=== PATIENT | female | born 1995 | race Caucasian/White ===

== ENCOUNTER 2017-08-05 12:21 | Emergency (ER) | payer SELFPAY ==
[2017-08-05 12:25] VITALS: BP 131/81
--- NOTE | 2017-08-05 12:48 | ER Document Report ---
HPI - HPI Patient complains to provider of: 3 weeks pelvic pain Onset: Other - 3 weeks Onset/Duration: Persistent Pain Level: 4 Context: 22 yo female with intermittent bilateral pelbic pain, low back pain and pelvic pain worse with movement at work. No fever or chills. Dysuria at firts. Vaginal discharge with bad smnell few weeks ago. Sex 2 weeks ago, new partner, NO condom.. LMP July 11. No hx ovarian cyst or endometriosis. Works [employer]. No rash. Associated Symptoms: None Exacerbated by: Denies Relieved by: Denies - ROS ROS below otherwise negative: Yes Systems Reviewed and Negative: Yes All other systems reviewed and negative Past Medical History - General Information source: Patient - Social History Smoking Status: Never Smoker Frequency of alcohol use: None Drug Abuse: None Lives with: Family Family History: Reviewed & Not Pertinent - Medical History Medical History: Negative Past Surgical History: Reports: Hx Myringotomy Vertical Provider Document - CONSTITUTIONAL Agree With Documented VS: Yes Exam Limitations: No Limitations General Appearance: No Apparent Distress - INFECTION CONTROL TRAVEL OUTSIDE OF THE [place] IN LAST 30 DAYS: No - HEENT HEENT: Normocephalic - NECK Neck: Supple - GI/ABDOMEN Gastrointestinal: Abdomen Soft, Abdomen Non-Tender, No Organomegaly - BACK Back: Normal Inspection. negative: CVA Tenderness-Right, CVA Tenderness-Left - MUSCULOSKELETAL/EXTREMETIES Musculoskeletal/Extremeties: MAEW - NEURO Level of Consciousness: Awake, Alert - DERM Integumentary: Warm, Dry, No Rash Course - Re-evaluation Re-evalutation: 08/05/17 13:45 wet prep shows BV, UA is negative. pt will call me back for the STD cultures 08/06/17 10:43 chlamydia was positive. Pt did not call me last night as instructed. Attempted call this am, no ability to leave a message on this phone. - Vital Signs Vital signs: Temp Pulse Resp BP Pulse Ox 98.6 F 73 15 131/81 H 98 08/05/17 12:25 08/05/17 12:25 08/05/17 12:25 08/05/17 12:25 08/05/17 12:25 Discharge - Discharge Clinical Impression: Bacterial vaginosis, Pelvic pain Condition: Good Disposition: HOME, SELF-CARE Instructions: Azithromycin ([facility]), Metronidazole ([facility]), Pelvic Pain ([facility]), Rocephin ([facility]) Additional Instructions: call me in 3 hours for the STD results [phone] no douching no alcohol with the metronidazole to obgyn if persists Prescriptions: Metronidazole [Flagyl 500 mg Tablet] 500 mg PO BID #14 tablet Forms: Return to Work Referrals: ELIF ARGUELLES MD [ACTIVE STAFF] - Follow up as needed
[2017-08-05 13:09] LABS: BACTERIA (WET MOUNT) 4+ BACTERIA SEEN; EPITHELIALS (WET MOUNT) 4+ EPITHELIALS SEEN; T.VAGINALIS (WET MOUNT) NO TRICHOMONAS SEEN; WBCS (WET MOUNT) 1+ WBCS SEEN; YEAST (WET MOUNT) NO YEAST SEEN
[2017-08-05] MEDS ORDERED: CEFTRIAXONE INJ 250 MG VIAL IM ONE (13:23)
[2017-08-05] MEDS ORDERED: LIDOCAINE 1% INJ-PF (10 MG/ML) 30 ML SDV INJ ONE (13:23)
[2017-08-05] MEDS ORDERED: AZITHROMYCIN 250 MG TABLET PO ONE (13:23)
[2017-08-05] MEDS ORDERED: ONDANSETRON 4 MG TAB.RAPDIS PO ONE (13:23)
[2017-08-05 13:27] LABS: APPEARANCE,URINE CLOUDY; BILIRUBIN,URINE NEGATIVE (NEGATIVE); COLOR,URINE YELLOW; GLUCOSE, URINE NEGATIVE (NEGATIVE); KETONES,URINE NEGATIVE (NEGATIVE); LEUKOCYTE ESTERASE,URINE NEGATIVE (NEGATIVE); NITRITE,URINE NEGATIVE (NEGATIVE); PROTEIN,URINE NEGATIVE (NEGATIVE); URINE SPECIFIC GRAVITY 1.024; UROBILINOGEN,URINE NEGATIVE mg/dL (<2.0)
[2017-08-05 14:36] LABS: CHLAM PCR DETECTED (NOT DETECT); GON PCR NOT DETECTED (NOT DETECT)
== END 2017-08-05 13:49 | disposition home or self-care (01) ==
LOC: ER 12:21
DX: N76.0 Acute vaginitis (principal); B96.89 Other specified bacterial agents as the cause of diseases classified elsewhere; A56.8 Sexually transmitted chlamydial infection of other sites; R10.2 Pelvic and perineal pain; M54.5 Low back pain
CPT/HCPCS: 99284; 96372; 87086; 87210; 81025; 81001; 87491; 87591; S0119; J3490; J0696

== ENCOUNTER 2017-10-15 18:06 | Emergency (ER) | payer SELFPAY ==
[2017-10-15] MEDS ORDERED: DIPHENHYDRAMINE HCL 50 MG/ML VIAL IM ONE (18:45)
--- NOTE | 2017-10-15 18:45 | ER Document Report ---
ED General - General Chief Complaint: Weakness Stated Complaint: WEAKNESS/TREMORS Time Seen by Provider: 10/15/17 18:39 Notes: The patient is a 22-year-old female, past medical history headaches, presents after she had a headache earlier today with mild lower right facial droop. She has had this in the past and has quickly resolved. Mom also noticed that she was having some trouble speaking. Patient said her tongue feels like it is curling uncontrollably. Patient is also shaking her left arm. Her headache has completely resolved and she has no focal weakness, numbness, tingling, blurry vision or fevers. TRAVEL OUTSIDE OF THE [place] IN LAST 30 DAYS: No - Related Data Allergies/Adverse Reactions: No Known Allergies Allergy (Verified 10/15/17 18:08) Past Medical History - General Information source: Patient - Social History Smoking Status: Unknown if Ever Smoked Family History: Reviewed & Not Pertinent Renal/ Medical History: Denies: Hx Peritoneal Dialysis Past Surgical History: Reports: Hx Myringotomy Review of Systems - Review of Systems Notes: REVIEW OF SYSTEMS: CONSTITUTIONAL: -fevers, -chills EENT: -eye pain, -difficulty swallowing, -nasal congestion CARDIOVASCULAR: -chest pain, -syncope. RESPIRATORY: -cough, -SOB GASTROINTESTINAL: -abdominal pain, -nausea, -vomiting, -diarrhea GENITOURINARY: -dysuria, -hematuria MUSCULOSKELETAL: -back pain, -neck pain SKIN: -rash or skin lesions. HEMATOLOGIC: -easy bruising or bleeding. LYMPHATIC: -swollen, enlarged glands. NEUROLOGICAL: -altered mental status or loss of consciousness, +headache PSYCHIATRIC: -anxiety, -depression. ALL OTHER SYSTEMS REVIEWED AND NEGATIVE. Physical Exam - Vital signs Vitals: Temp Pulse Resp BP Pulse Ox 97.5 F 82 20 131/88 H 97 10/15/17 18:16 10/15/17 18:16 10/15/17 18:16 10/15/17 18:16 10/15/17 18:16 - Notes Notes: PHYSICAL EXAMINATION: GENERAL: Well-appearing, well-nourished and in no acute distress. HEAD: Atraumatic, normocephalic. EYES: Pupils equal round and reactive to light, extraocular movements intact, sclera anicteric, conjunctiva are normal. ENT: tongue curling, nares patent, oropharynx clear without exudates. Moist mucous membranes. NECK: Normal range of motion, supple without lymphadenopathy LUNGS: Breath sounds clear to auscultation bilaterally and equal. No wheezes rales or rhonchi. HEART: Regular rate and rhythm without murmurs ABDOMEN: Soft, nontender, normoactive bowel sounds. No guarding, no rebound. No masses appreciated. EXTREMITIES: Normal range of motion, no pitting or edema. No cyanosis. NEUROLOGICAL: Shaking of left arm. Cranial nerves grossly intact. Normal speech , normal gait. Normal sensory and motor exams. PSYCH: Normal mood, normal affect. SKIN: Warm, Dry, normal turgor, no rashes or lesions noted. Course - Re-evaluation Re-evalutation: Patient appears well and is in no acute distress. She does have uncontrollable tongue curling, which is improved after IM Benadryl. Mom and patient says that she is not on any antipsychoticic medications or other dopamine agonists. Suspect there may be a component of complex headaches and told her to follow-up with her neurologist for further evaluation and treatment. Her symptoms are atypical for CVA or TIA at this time. - Vital Signs Vital signs: Temp Pulse Resp BP Pulse Ox 97.5 F 82 20 131/88 H 97 10/15/17 18:16 10/15/17 18:16 10/15/17 18:16 10/15/17 18:16 10/15/17 18:16 - Laboratory Laboratory results interpreted by me: 10/15/17 19:27 Urine Blood MODERATE H Discharge - Discharge Clinical Impression: Tardive dyskinesia Headache Qualifiers: Headache type: unspecified Headache chronicity pattern: unspecified pattern Intractability: not intractable Qualified Code(s): R51 - Headache Condition: Stable Disposition: HOME, SELF-CARE Additional Instructions: Follow-up with the neurologist for further evaluation and treatment. HEADACHE: The physician does not feel that the headache you are experiencing has a serious underlying cause. Most headaches are due to emotional stress, with resultant muscle tension (tension headache). Occasionally, headaches are secondary to changes in the blood vessels of the scalp (vascular headache and migraine headache). Sometimes, a headache is the first symptom of another developing illness, such as a viral infection. You have no evidence of stroke, bleeding, meningitis, or other serious cause of your headache. The treatment of headaches varies with the severity and cause of the pain. Not all headaches need pain shots. In fact, there is evidence that using narcotics for headaches may make them worse in the long run. The physician will determine the therapy that's in your best interest. If you develop a fever, if the headache is different from any you've previously experienced, or if the headache progressively worsens, then call your physician at once or go to the emergency room. USE OF DIPHENHYDRAMINE: Diphenhydramine (Benadryl) is an antihistamine and has been recommended to help treat your headache and to prevent side effects of other medications used to treat headaches. The medication can be repeated four times daily. Age Elixir (12.5 mg/tsp) 25 mg pill adult 1-2 tabs Antihistamines may cause drowsiness, especially with the first dose. Do not operate machinery or drive while under the effects of the medication. Do not combine the medication with alcohol, or with any other medication without talking to your doctor. FOLLOW-UP CARE: If you have been referred to a physician for follow-up care, call the physician s office for an appointment as you were instructed or within the next two days. If you experience worsening or a significant change in your symptoms, notify the physician immediately or return to the Emergency Department at any time for re-evaluation. Forms: Elevated Blood Pressure Referrals: LAILA SEGURA MD [NO LOCAL MD] - Follow up as needed
[2017-10-15 19:54] LABS: APPEARANCE,URINE CLEAR; BILIRUBIN,URINE NEGATIVE (NEGATIVE); COLOR,URINE YELLOW; GLUCOSE, URINE NEGATIVE (NEGATIVE); KETONES,URINE NEGATIVE (NEGATIVE); LEUKOCYTE ESTERASE,URINE NEGATIVE (NEGATIVE); NITRITE,URINE NEGATIVE (NEGATIVE); PROTEIN,URINE NEGATIVE (NEGATIVE); URINE SPECIFIC GRAVITY 1.011; UROBILINOGEN,URINE NEGATIVE mg/dL (<2.0)
[2017-10-15 20:45] VITALS: BP 135/77
== END 2017-10-15 20:45 | disposition home or self-care (01) ==
LOC: ER 18:06
DX: G24.01 Drug induced subacute dyskinesia (principal); R51 Headache; R53.1 Weakness; R29.810 Facial weakness
CPT/HCPCS: 99284; 96372; 81025; 81001; J1200

== ENCOUNTER → 2018-04-16 | Outpatient (CLI) | payer SELFPAY ==
--- NOTE | 2018-04-16 15:46 | RADIOLOGY REPORT (SQ) ---
EXAM DESCRIPTION: U/S [id number] TRNABD 1GES W/ODOP COMPLETED DATE/TIME: 04/16/2018 2:41 pm REASON FOR STUDY: ENCTR FOR SUPERVISION OF NORMAL FIRST , 1ST TRIMESTER (Z34.01) Z34.01 EN CNTR FOR SUPRVSN OF NORMAL FIRST PREG, FIRST TRIMES COMPARISON: None. TECHNIQUE: Transabdominal static and realtime grayscale images acquired of the pelvis. Additional se lected spectral and color Doppler images recorded. All images stored on PACs. bHCG: Not available. CLINICAL DATES: EGA LIMITATIONS: None. FINDINGS: FETUS: Single Living intrauterine . ULTRASOUND EGA: 7 weeks 5 days ULTRASOUND BHAVYA: 11/28/2018 EFW: Not applicable less than 20 weeks. CRL: 1.4 cm FHR: 163 beats per minute. SURVEY: No visualized anomalies. AMNIOTIC FLUID: Adequate amount. PLACENTA: Not yet developed due to early gestation. SUBCHORIONIC BLEED: No. SIZE OF BLEED: Not applicable. UTERUS: No masses. No anomalies. CERVICAL LENGTH: 3.8 cm Closed. RIGHT ADNEXA: Normal ovary with normal vascular flow. No adnexal free fluid. No adnexal masses. LEFT ADNEXA: Ovary not identified due to poor acoustical window. No adnexal free fluid. No adnexal masses. FREE FLUID: None. OTHER: No other significant finding. IMPRESSION: LIVING INTRAUTERINE . EGA of 7 weeks 5 days Trimester of : First - 0 to 13 weeks. TECHNICAL DOCUMENTATION: JOB ID: [id number] [employer]- All Rights Reserved rev Reading location - IP/workstation name: [facility]
== END ==
LOC: RAD 14:00
PROVIDERS: ATTEND Nurse Practitioner
DX: Z34.01 Encounter for supervision of normal first pregnancy, first trimester (principal)
CPT/HCPCS: 76801